=== PATIENT | female | born 1945 | race Caucasian/White ===

== ENCOUNTER → 2017-04-16 | Outpatient (CLI) | payer MEDICARE, OTHER | END | disposition home or self-care (01) | LOC: LAB.O 13:31 | PROVIDERS: ATTEND Internal Medicine Hematology & Oncology | DX: C50.919 Malignant neoplasm of unspecified site of unspecified female breast (principal) ==

== ENCOUNTER → 2019-10-19 | Outpatient (CLI) | payer MEDICARE, OTHER ==
--- NOTE | 2019-10-19 10:41 | RAD ---
EXAM DESCRIPTION: Pelvis CLINICAL HISTORY: 73 years Female, HIP PAIN LEFT AND RIGHT HIP COMPARISON: None. TECHNIQUE: AP radiograph of the pelvis was performed. FINDINGS: The pelvic ring appears grossly intact on this single AP radiograph. No acute fracture or dislocation. Bilateral sacroiliac joints appear normal. Mild bilateral hip osteoarthritis. Osteitis pubis. The visualized lumbo-sacral spine demonstrates mild degenerative changes. IMPRESSION: Mild bilateral hip osteoarthritis. Osteitis pubis. Electronically signed by: Damaris Vee MD 10/19/2019 10:38 AM CDT
--- NOTE | 2019-10-19 10:42 | RAD ---
EXAM DESCRIPTION: Knee,Left Complete CLINICAL HISTORY: 73 years Female, PAIN IN LEFT KNEE TECHNIQUE: 4 views of the left knee were performed. COMPARISON: None available. FINDINGS: The visualized bones appear well mineralized. No acute fracture or dislocation. Moderate tricompartmental osteoarthritis with small joint effusion. The soft tissues appear grossly unremarkable. IMPRESSION: Moderate tricompartmental osteoarthritis with small joint effusion. Electronically signed by: Damaris Vee MD 10/19/2019 10:40 AM CDT
--- NOTE | 2019-10-19 10:42 | RAD ---
EXAM DESCRIPTION: Knee,Right Complete CLINICAL HISTORY: 73 years Female, PAIN IN RIGHT KNEE TECHNIQUE: 4 views of the right knee were performed. COMPARISON: None available. FINDINGS: The visualized bones appear well mineralized. No acute fracture or dislocation. Moderate tricompartmental osteoarthritis with small joint effusion.The soft tissues appear grossly unremarkable. IMPRESSION: Moderate tricompartmental osteoarthritis with small joint effusion. Electronically signed by: Damaris Vee MD 10/19/2019 10:40 AM CDT
== END ==
LOC: RAD 08:17
PROVIDERS: ATTEND Orthopaedic Surgery
DX: M17.0 Bilateral primary osteoarthritis of knee (principal); M25.461 Effusion, right knee; M25.462 Effusion, left knee; M16.0 Bilateral primary osteoarthritis of hip; M85.30 Osteitis condensans, unspecified site

== ENCOUNTER → 2020-01-14 | Outpatient (CLI) | payer MEDICARE, OTHER ==
--- NOTE | 2020-01-15 10:25 | RAD ---
EXAM DESCRIPTION: Chest,2 Views CLINICAL HISTORY: PRE-OP COMPARISON: None TECHNIQUE: PA/lateral FINDINGS: Surgical clips in the right axilla and in the left breast and in the left axilla. Heart size is normal with normal pulmonary vascularity. No pleural effusion or pneumothorax. Lungs are clear with no consolidating infiltrate. Lateral view shows intact sternum and mild spurring in the T-spine. IMPRESSION: No acute process is identified in the chest. Electronically signed by: Ruben Dudley MD 01/15/2020 10:23 AM CDT
== END ==
LOC: YCFC.O 13:54
PROVIDERS: ATTEND Family Medicine
DX: Z01.818 Encounter for other preprocedural examination (principal); R03.0 Elevated blood-pressure reading, without diagnosis of hypertension; E78.5 Hyperlipidemia, unspecified; Z86.39 Personal history of other endocrine, nutritional and metabolic disease

== ENCOUNTER → 2020-02-25 | Day surgery (SDC) | payer MEDICARE, OTHER ==
--- NOTE | 2020-02-26 11:19 | RAD ---
EXAM DESCRIPTION: Chest,2 Views CLINICAL HISTORY: PRE SURGERY EVALUATION COMPARISON: Previous chest x-ray January 14, 2020 TECHNIQUE: PA/lateral FINDINGS: Surgical clips are seen in the bilateral axillary regions and in the left breast. Rounded calcific density overlying the left lower lung zone is apparently in the left breast. Heart size is normal with normal pulmonary vascularity. No pleural effusion or pneumothorax. Lungs are clear with no consolidating infiltrate. Lateral view shows intact sternum and T-spine. IMPRESSION: No acute process is identified in the chest. Electronically signed by: Ruben Dudley MD 02/26/2020 11:18 AM [facility]
== END ==
LOC: AMB 05:33 → LAB 11:16 → EDSTATUS 13:38 → AMB 03-02 05:33
PROVIDERS: ATTEND Orthopaedic Surgery
DX: Z01.818 Encounter for other preprocedural examination (principal); Z01.810 Encounter for preprocedural cardiovascular examination; Z53.9 Procedure and treatment not carried out, unspecified reason

== ENCOUNTER → 2020-05-23 | Outpatient (CLI) | payer MEDICARE, OTHER | LOC: LAB.O 10:49 | PROVIDERS: ATTEND Orthopaedic Surgery | DX: Z01.818 Encounter for other preprocedural examination (principal) ==

== ENCOUNTER → 2020-05-24 | Outpatient (CLI) | payer MEDICARE, OTHER | LOC: YCFC.O 10:22 | PROVIDERS: ATTEND Family Medicine | DX: Z01.89 Encounter for other specified special examinations (principal) ==

== ENCOUNTER 2020-05-31 05:59 | Inpatient (IN) | payer MEDICARE, OTHER ==
[~2020-05-31 05:59] MED LIST: LACTATED RINGERS 1,000 ML ONE; SODIUM CHL 0.9% 100ML MINI-BAG 100 ML IVPB ONE; SODIUM CHLORIDE 0.9% 100ML 100 ML IVPB ONE; SODIUM CHLORIDE 0.9% 250ML 250 ML ONE; TRANEXAMIC ACID 1,000 MG/10 ML VIAL ONE; VANCOMYCIN HCL INJ 1,000 MG VIAL IVPB ONE; ceFAZolin SODIUM 1 GM VIAL ONE
[2020-05-31] MEDS ORDERED: VANCOMYCIN HCL INJ 1,000 MG VIAL IVPB ONE ×4 (06:23→15:02)
[2020-05-31] MEDS ORDERED: BUPIVACAINE 0.5% 30 ML VIAL INJ ONE ×2 (06:23→06:47)
[2020-05-31] MEDS ORDERED: ceFAZolin SODIUM 1 GM VIAL ONE (06:23)
[2020-05-31] MEDS ORDERED: BUPIVACAINE LIPOSOME 13.3 MG/ML VIAL INJ ONE ×2 (06:23→06:47)
[2020-05-31] MEDS ORDERED: MIDAZOLAM INJ 5 MG/5 ML VIAL ONE (06:25)
[2020-05-31] MEDS ORDERED: KETAMINE HCL 100 MG/ML VIAL ONE (06:25)
[2020-05-31] MEDS ORDERED: DEXMEDETOMIDINE HCL 200 MCG/2 ML INJ IV ONE (06:25)
[2020-05-31] MEDS ORDERED: HYDROmorphone HCL INJ 2 MG/ML VIAL ONE (06:25)
[2020-05-31] MEDS ORDERED: FAMOTIDINE INJ 10 MG/ML VIAL IV ONE (06:26)
[2020-05-31] MEDS ORDERED: TRANEXAMIC ACID 1,000 MG/10 ML VIAL IV ONE (06:31)
[2020-05-31] MEDS ORDERED: ceFAZolin SODIUM 1 GM VIAL IRRIG ONE (06:47)
[2020-05-31] MEDS ORDERED: ELECTROLYTE-A 1,000 ML IVS ONE (08:55)
[2020-05-31] MEDS ORDERED: SODIUM CHLORIDE 0.9% (FLUSH) 10 ML SYG IV PRN (09:10)
[2020-05-31] MEDS ORDERED: ONDANSETRON INJ 4 MG/2 ML VIAL IV PRN (09:10)
[2020-05-31] MEDS ORDERED: MORPHINE SULFATE INJ 10 MG/ML VIAL IV PRN (09:10)
[2020-05-31] MEDS ORDERED: ACETAMINOPHEN 500 MG TAB PO PRN (09:10)
[2020-05-31] MEDS ORDERED: BISACODYL SUPPOSITORY 10 MG PR PRN (09:10)
[2020-05-31] MEDS ORDERED: PROMETHAZINE HCL INJ 25 MG in SODIUM CHLORIDE 0.9% 50ML 50 ML IVPB PRN (09:10)
[2020-05-31] MEDS ORDERED: ZOLPIDEM TARTRATE 5 MG TAB PO PRN (09:10)
[2020-05-31] MEDS ORDERED: CYCLOBENZAPRINE HCL 10 MG TAB PO PRN (09:10)
[2020-05-31] MEDS ORDERED: traMADol HCL 50 MG TAB PO PRN (09:10)
[2020-05-31] MEDS ORDERED: HYDROcodone 5MG/APAP 325MG 1 EA TAB PO PRN (09:10)
[2020-05-31] MEDS ORDERED: ACETAMINOPHEN 325 MG TAB PO PRN (09:10)
[2020-05-31] MEDS ORDERED: ALUMINUM & MAGNESIUM HYDROXIDE 30 ML UD PO PRN (09:10)
[2020-05-31] MEDS ORDERED: NALOXONE HCL INJ 0.4 MG/ML VIAL IV PRN (09:10)
[2020-05-31] MEDS ORDERED: BENZOCAINE-MENTH LOZ (CEPACOL) 1 EA LOZ MT PRN (09:10)
[2020-05-31] MEDS ORDERED: PROMETHAZINE HCL INJ 12.5 MG in SODIUM CHLORIDE 0.9% 50ML 50 ML IVPB PRN (09:10)
[2020-05-31] MEDS ORDERED: MAGNESIUM HYDROXIDE 30 ML UD PO PRN (09:10)
[2020-05-31] MEDS ORDERED: hydrOXYzine HCl 25 MG TAB PO PRN (09:10)
[2020-05-31] MEDS ORDERED: SODIUM CHLORIDE 0.45% 1000ML 1,000 ML IVS PRN (09:10)
[2020-05-31] MEDS ORDERED: TRANEXAMIC ACID INJ 1,000 MG in SODIUM CHLORIDE 0.9% 100ML 100 ML IVPB ONE (09:10)
[2020-05-31] MEDS ORDERED: TEMAZEPAM 15 MG CAP PO PRN (09:10)
[2020-05-31] MEDS ORDERED: MORPHINE SULFATE INJ 10 MG/ML VIAL IM PRN (09:10)
--- NOTE | 2020-05-31 09:11 | RAD ---
EXAM DESCRIPTION: Fluoroscopy Up to 1Hr CLINICAL HISTORY: TKA LEFT COMPARISON: None. TECHNIQUE: Fluoroscopy time is 9 seconds, one spot film. FINDINGS: The patient is post left total knee arthroplasty. Electronically signed by: Hubert Rushing MD 05/31/2020 9:09 AM [facility]
[2020-05-31] MEDS ORDERED: IV SET AND CAP CHANGE INJ INJ SCH (09:30)
[2020-05-31] MEDS ORDERED: MORPHINE PCA 1 MG/ML 100 ML BAG IVPB SCH (09:30)
[2020-05-31] MEDS ORDERED: CADD ADMIN SET 1 EA PKG INJ ONE (09:31)
[2020-05-31] MEDS ORDERED: MORPHINE PCA 1 MG/ML 100 ML BAG IVPB ONE (09:40)
--- NOTE | 2020-05-31 12:11 | RAD ---
EXAM DESCRIPTION: Knee,Left 1 or 2 Views CLINICAL HISTORY: TKA COMPARISON: 19 October 2019 TECHNIQUE: AP and lateral left FINDINGS: A left total knee arthroplasty is observed in place. Positioning is near-anatomic. Postoperative air is observed anteriorly. IMPRESSION: New left total knee arthroplasty. Electronically signed by: Hubert Rushing MD 05/31/2020 12:[address] [facility]
--- NOTE | 2020-05-31 13:26 | CONS ---
SUPERVISING PHYSICIAN: Steve Thomas MD DATE OF CONSULTATION: 05/31/20 REASON FOR CONSULTATION: Medical management. HISTORY OF PRESENT ILLNESS: This is a 74-year-old female who has been having ongoing left knee osteoarthritis for several years. She has undergone conservative management without any significant improvement in symptoms. Therefore, she underwent left total knee arthroplasty today without any intraoperative complications. She was admitted to the Medical/Surgical Unit postoperatively for physical therapy and pain control. On examination, the patient is still drowsy from anesthesia, but she states no pain. There is no sign of distress at this time. PAST MEDICAL HISTORY: 1. Hyperlipidemia. 2. Venous insufficiency. 3. Osteoarthritis. 4. Chronic back pain. PAST SURGICAL HISTORY: 1. Lumpectomy of right breast. 2. Cataract surgery. 3. Lumpectomy of left breast. 4. Knee arthroscopy. MEDICATIONS: Please see medication reconciliation list once verified in the computer. ALLERGIES: NO KNOWN DRUG ALLERGIES FAMILY HISTORY: Father at age 91 and had kidney disease. Mother at age 57 of stroke. SOCIAL HISTORY: The patient is . She has 3 children. She was a previous smoker. No alcohol, no illicit drug use. REVIEW OF SYSTEMS: Other than the left knee discomfort preoperatively, she has no complaints. PHYSICAL EXAMINATION: VITAL SIGNS: Blood pressure 111/71, heart rate 60, respiratory rate 14, temperature 97.5, oxygen saturation 97%. GENERAL: Ms. Owen is a 74-year-old female in no active distress currently. NEUROLOGIC: The patient is a little bit drowsy from anesthesia, but awakens to voice and follows commands. There are no focal deficits. LUNGS: Clear to auscultation bilaterally. CARDIOVASCULAR: Regular rate and rhythm. Normal S1, S2. ABDOMEN: Soft. Positive bowel sounds. EXTREMITIES: Lower extremities with pulses 2+. Capillary refill is less than 2 seconds. The left lower extremity knee is wrapped in an Wilmer and ice pack at this time. IMPRESSION: 1. Left knee osteoarthritis status post left total knee arthroplasty. 2. Hyperlipidemia. 3. Osteoarthritis. 4. Chronic back pain. PLAN: The patient will be admitted to the Medical/Surgical Unit for postoperative pain control as well as advancing physical therapy. She will also be placed on anticoagulation approximately 12 hours after procedure end. We will continue to monitor her physical therapy status while she is here to better be able to assess for discharge planning. We will repeat labs in the morning. [facility][id number] [facility]
[2020-05-31] MEDS ORDERED: CELECOXIB 100 MG CAP ONE (15:02)
[2020-05-31] MEDS ORDERED: SODIUM CHLORIDE 0.9% 250ML 250 ML ONE (15:02)
[2020-05-31] MEDS: ceFAZolin SODIUM 2 GM in SODIUM CHLORIDE 0.9% 100ML 100 ML IVPB SCH ×2 (15:08→23:56)
[2020-05-31] MEDS: VANCOMYCIN HCL INJ 1,000 MG in SODIUM CHLORIDE 0.9% 250ML 250 ML IVPB SCH (17:06)
[2020-05-31] MEDS: CELECOXIB 100 MG CAP PO SCH (17:06)
[2020-05-31] MEDS: DOCUSATE CALCIUM 240 MG CAP PO SCH (22:00)
[2020-05-31] MEDS: MELATONIN 3 MG TAB PO SCH (22:00)
[2020-05-31] MEDS: DICYCLOMINE HCL 20 MG TAB PO SCH (22:00)
[2020-05-31] MEDS: ENOXAPARIN SODIUM 30 MG/0.3 ML SYG SUBCU SCH (23:55)
[2020-06-01] MEDS: VANCOMYCIN HCL INJ 1,000 MG in SODIUM CHLORIDE 0.9% 250ML 250 ML IVPB SCH (05:53)
[2020-06-01] MEDS ORDERED: CHOLECALCIFEROL 2,000 IU TAB PO ONE (07:47)
[2020-06-01] MEDS ORDERED: FISH OIL 1,200 MG CAP ONE (07:47)
[2020-06-01] MEDS ORDERED: DICYCLOMINE HCL 20 MG TAB ONE (07:47)
[2020-06-01] MEDS ORDERED: MAGNESIUM OXIDE 400 MG TAB ONE (07:47)
[2020-06-01] MEDS ORDERED: ENOXAPARIN SODIUM 30 MG/0.3 ML SYG SUBCU ONE (07:48)
[2020-06-01] MEDS: FISH OIL 1,200 MG CAP PO SCH (09:06)
[2020-06-01] MEDS: CELECOXIB 100 MG CAP PO SCH ×2 (09:06→17:04)
[2020-06-01] MEDS: MAGNESIUM OXIDE 400 MG TAB PO SCH (09:06)
[2020-06-01] MEDS: CHOLECALCIFEROL 2,000 IU TAB PO SCH (09:06)
[2020-06-01] MEDS: ceFAZolin SODIUM 2 GM in SODIUM CHLORIDE 0.9% 100ML 100 ML IVPB SCH (09:21)
[2020-06-01] MEDS: [UNRECOGNIZED DRUG - OTHER] PO SCH (09:21)
[2020-06-01] MEDS: BIOFLAVONOID PRODUCTS PO SCH (09:21)
[2020-06-01] MEDS: DICYCLOMINE HCL 20 MG TAB PO SCH ×2 (09:22→21:25)
[2020-06-01] MEDS: MAGNESIUM CHLORIDE 64 MG TAB PO SCH (09:22)
[2020-06-01] MEDS: B COMPLEX 1 EA TAB PO SCH (09:22)
[2020-06-01] MEDS: GLUCOSAMINE CHONDROITIN VIT C PO SCH (09:22)
[2020-06-01] MEDS: COENZYME Q10 400 MG PO SCH (09:22)
--- NOTE | 2020-06-01 10:08 | PN ---
DATE: 05/31/20 POSTOPERATIVE CHECK SUBJECTIVE: Ms. Owen is doing well and she has no pain. OBJECTIVE: Afebrile. Vital signs stable. Dressing is clean, dry and intact. ASSESSMENT: Status post total knee arthroplasty. PLAN: The plan at this point is to begin weightbearing as tolerated on postoperative day 1. #[id number] MTDD
--- NOTE | 2020-06-01 10:10 | PN ---
DATE: 06/01/20 SUBJECTIVE: Ms. Owen is doing well and she is comfortable. OBJECTIVE: Afebrile. Vital signs stable. Dressing is clean, dry and intact. ASSESSMENT: Status post total knee arthroplasty. PLAN: The plan at this point is for her to begin weightbearing as tolerated today. #[id number] MTDD
[2020-06-01] MEDS: ENOXAPARIN SODIUM 30 MG/0.3 ML SYG SUBCU SCH ×2 (11:00→23:02)
--- NOTE | 2020-06-01 15:24 | PN ---
SUPERVISING PHYSICIAN: Steve Thomas MD DATE: 06/01/20 SUBJECTIVE: The patient has had fairly good control of her pain. She had a little postoperative nausea and this has lessened. She is actually tolerating a diet. She is working with physical therapy without any complications. OBJECTIVE: VITAL SIGNS: Temperature 97.2, pulse 56, blood pressure 126/60, respirations 18, saturation 98% on room air at rest. GENERAL: The patient is resting comfortably. She just finished her first round of physical therapy. She is alert. CHEST: Lungs are clear to auscultation bilaterally. HEART: Regular rate and rhythm. ABDOMEN: Soft, nontender. Positive bowel sounds. EXTREMITIES: Left knee has a bulky dressing in place that is clean and dry. Distal pulses are strong. Capillary refill is brisk. NEUROLOGIC: Alert and oriented times three. LABORATORY: Postoperative hemoglobin 11.1, hematocrit 32.6. Chemistries show normal electrolytes with creatinine 0.78. RADIOLOGY: No additional radiographic studies. ASSESSMENT: 1. Left knee osteoarthritis status post left total knee arthroplasty, postoperative day #1. 2. Hyperlipidemia. 3. Osteoarthritis. 4. Chronic back pain. PLAN: We will continue to follow the patient as she progresses with her physical therapy and rehabilitation efforts. She is advancing her diet as tolerated. At this point, I anticipate discharging in the next 24 to 48 hours to continue with physical therapy at [facility]. Until the patient can transition to outpatient management, we will continue to monitor and treat as needed. #[id number] MTDD
[2020-06-01] MEDS: MELATONIN 3 MG TAB PO SCH (21:25)
[2020-06-01] MEDS: DOCUSATE CALCIUM 240 MG CAP PO SCH (21:25)
[2020-06-02] MEDS: HYDROcodone 10MG/APAP 325MG 1 EA TAB PO PRN ×2 (04:25→10:34)
[2020-06-02] MEDS ORDERED: SULFA/TRIMETH 800/160 (DS) TAB 1 EA TAB ONE (07:28)
--- NOTE | 2020-06-02 08:05 | PN ---
DATE: 06/02/20 SUBJECTIVE: Ms. Owen is doing well and has great pain control right now. OBJECTIVE: Afebrile. Vital signs stable. Dressing is clean, dry and intact. ASSESSMENT: Status post total knee arthroplasty. PLAN: The plan at this point is for her to continue with her weightbearing status. She will likely be discharged today. #[id number] MTDD
[2020-06-02] MEDS: CELECOXIB 100 MG CAP PO SCH (08:10)
[2020-06-02] MEDS: FISH OIL 1,200 MG CAP PO SCH (08:10)
[2020-06-02] MEDS: MAGNESIUM OXIDE 400 MG TAB PO SCH (08:10)
[2020-06-02] MEDS: DICYCLOMINE HCL 20 MG TAB PO SCH (08:11)
[2020-06-02] MEDS: [UNRECOGNIZED DRUG - OTHER] PO SCH (08:15)
[2020-06-02] MEDS: COENZYME Q10 400 MG PO SCH (08:15)
[2020-06-02] MEDS: B COMPLEX 1 EA TAB PO SCH (08:15)
[2020-06-02] MEDS: GLUCOSAMINE CHONDROITIN VIT C PO SCH (08:15)
[2020-06-02] MEDS: BIOFLAVONOID PRODUCTS PO SCH (08:15)
--- NOTE | 2020-06-02 08:17 | OP ---
DATE OF PROCEDURE: 05/31/20 PREOPERATIVE DIAGNOSIS: 1. Osteoarthritis of the left knee. POSTOPERATIVE DIAGNOSIS: 1. Osteoarthritis of the left knee. PROCEDURE: 1. Left total knee arthroplasty. SURGEON: Wilmer Hernandez MD. PHARMACY INFORMATICS MANAGER: Adi Jiang CST, SA-C. ANESTHESIA: General anesthesia. COMPLICATIONS: None. FINDINGS: Severe osteoarthritis of the knee. INDICATION: Ms. Owen has a long history of pain associated with osteoarthritis of the knee. She has had discomfort going on for years and it started limiting her activities. Because fo the ongoing limitations, she has requested operative intervention. After discussing the risks, benefits and alternatives to operative intervention, the patient has given informed consent for total knee arthroplasty. PROCEDURE: The patient was brought to the Operating Room and placed in supine position. General anesthesia was induced and the patient's leg was sterilely prepped and draped. Following prepping and draping, the distal femur was exposed and using an intramedullary guide, the distal femoral cut was made. The appropriate sized cutting block was measured, pinned into place, and the anterior, posterior, and chamfer cuts were made. The ACL was transected and the tibia was subluxed. Both the medial and lateral menisci were removed. An intramedullary guide was used to make the proximal tibial cut. The appropriate sized base plate was placed and a trial polyethylene was placed. The trial femur was placed, the knee was reduced, and the knee was taken through a range of motion. The knee was stable in anterior, posterior, varus and valgus stress. The patella tracked anatomically without evidence of subluxation or dislocation. After trialing, the trial components were removed and the bony surfaces were thoroughly irrigated with saline. Following irrigation, the surfaces were dried and the final components were cemented into place. The excess cement was removed and the remaining cement was allowed to cure. The knee was again taken through a range of motion to confirm stability. The wound was then irrigated with saline and closure was performed using PDS to approximate the arthrotomy followed by closure of the subcutaneous tissues with a combination of running and interrupted Monocryl sutures. Sterile dressing was placed. The patient was awoken from anesthesia and taken to Recovery. COMPONENTS: [place] [employer] knee, size 5 femur, size 4 tibia, 11 mm insert. POSTOPERATIVE PLAN: The patient will be weightbearing as tolerated on postoperative day 1. #[id number] MTDD
[2020-06-02] MEDS: CHOLECALCIFEROL 2,000 IU TAB PO SCH (08:30)
[2020-06-02] MEDS ORDERED: SODIUM CHLORIDE 0.9% (FLUSH) 10 ML SYG IV SCH (09:00)
[2020-06-02] MEDS ORDERED: SULFA/TRIMETH 800/160 (DS) TAB 1 EA TAB PO SCH (09:00)
[2020-06-02] MEDS: MAGNESIUM CHLORIDE 64 MG TAB PO SCH (11:03)
[2020-06-02] MEDS: ENOXAPARIN SODIUM 30 MG/0.3 ML SYG SUBCU SCH (11:09)
[2020-06-02 14:24] VITALS: O2SAT 96
[2020-06-02 14:27] VITALS: BP 110/70; TEMP 98.2
[2020-06-03] MEDS ORDERED: BISACODYL SUPPOSITORY 10 MG PR ONE (21:00)
[2020-06-03] MEDS ORDERED: MAGNESIUM HYDROXIDE 30 ML UD PO ONE (21:00)
--- NOTE | 2020-06-15 14:55 | DS ---
SUPERVISING PHYSICIAN: Steve Thomas MD ADMISSION DIAGNOSIS: 1. Left knee osteoarthritis status post left total knee arthroplasty. 2. Hyperlipidemia. 3. Osteoarthritis. 4. Chronic back pain. DISCHARGE DIAGNOSIS: 1. Left knee osteoarthritis status post left total knee arthroplasty, postoperative day #2. 2. Hyperlipidemia. 3. Osteoarthritis. 4. Chronic back pain. REASON FOR HOSPITALIZATION: This is a 74-year-old female who has been having ongoing left knee osteoarthritis for several years. She has undergone conservative management without any significant improvement in symptoms. Therefore, she underwent left total knee arthroplasty today without any intraoperative complications. She was admitted to the Medical/Surgical Unit postoperatively for physical therapy and pain control. On examination, the patient is still drowsy from anesthesia, but she states no pain. There is no sign of distress at this time. LABORATORY: Postoperative hemoglobin 11.1, hematocrit 32.6. Toxicology screen was negative. Chemistries showed normal electrolytes, creatinine 0.78. RADIOLOGY: Postoperative knee x-ray showed left total knee arthroplasty in place, position near anatomic. HOSPITAL COURSE: Ms. Owen was admitted for elective left total knee arthroplasty. She had no intraoperative or postoperative complications. She was doing well with physical therapy. She was tolerating a diet. Vital signs were stable. She was to continue her physical therapy through [facility]. Vital signs on discharge showed she was afebrile with temperature 98.2, pulse 82, blood pressure 110/70, respirations 18, saturation 96% on room air. PLAN: The patient was discharged on 06/02/[address] Hernandez in 2 weeks as scheduled on 06/16/20. Activity as per Dr. Hernandez's postoperative instructions. Resume diet as tolerated. She is to call Dr. Hernandez's office with any concerning questions. Medications prescribed on discharge included: 1. Macrobid 100 mg twice daily, #10, no refills. 2. Xarelto 10 mg twice daily, #10, no refills. CONDITION ON DISCHARGE: Stable and improved. DISPOSITION: The patient was discharged home. #[id number] MTDD
== END 2020-06-02 15:30 | disposition home or self-care (01) | DRG 470 ==
LOC: AMB 05:59 → MS 10:10
PROVIDERS: ADMIT Orthopaedic Surgery; ATTEND Nurse Practitioner Family
PROC: 0SRD0J9 Replacement of Left Knee Joint with Synthetic Substitute, Cemented, Open Approach (ICD-10-PCS; principal; 2020-05-31 07:00)
DX: M17.12 Unilateral primary osteoarthritis, left knee (principal); E78.5 Hyperlipidemia, unspecified; I87.2 Venous insufficiency (chronic) (peripheral); G89.29 Other chronic pain; Z87.891 Personal history of nicotine dependence; Z79.1 Long term (current) use of non-steroidal anti-inflammatories (NSAID); Z79.899 Other long term (current) drug therapy